=== PATIENT | female | born 1955 | race Asian ===

== ENCOUNTER 2017-02-15 09:55 | Outpatient (CLI) | payer OTHER ==
[2017-02-15 10:22] LABS: PLATELET COUNT 222 K/uL (152-353)
[2017-02-15 10:50] LABS: POTASSIUM 3.7 mmol/L (3.6-5.2)
== END 2017-02-15 10:55 | disposition home or self-care (01) ==
LOC: LABW 09:55
PROVIDERS: Family Medicine
DX: I10 Essential (primary) hypertension (principal); I48.91 Unspecified atrial fibrillation; G89.4 Chronic pain syndrome; F41.8 Other specified anxiety disorders; G47.33 Obstructive sleep apnea (adult) (pediatric); G47.09 Other insomnia; E55.9 Vitamin D deficiency, unspecified
CPT/HCPCS: 36415; 80053; 80061; 81000; 82043; 82306; 82570; 83735; 84439; 84443; 84550; 85027

== ENCOUNTER 2017-07-18 09:26 | Outpatient (CLI) | payer OTHER ==
[2017-07-18 10:17] LABS: PLATELET COUNT 208 K/uL (152-353)
[2017-07-18 10:36] LABS: POTASSIUM 3.5 mmol/L (3.6-5.2)
== END 2017-07-18 22:46 | disposition home or self-care (01) ==
LOC: LABW 09:26
PROVIDERS: Family Medicine
DX: K21.9 Gastro-esophageal reflux disease without esophagitis (principal); I10 Essential (primary) hypertension; E55.9 Vitamin D deficiency, unspecified; E78.00 Pure hypercholesterolemia, unspecified; R00.2 Palpitations; Z79.899 Other long term (current) drug therapy; Z51.81 Encounter for therapeutic drug level monitoring
CPT/HCPCS: 36415; 80053; 80061; 81000; 82306; 83036; 83735; 84439; 84443; 85027

== ENCOUNTER 2017-11-13 10:35 | Outpatient (CLI) | payer OTHER ==
[2017-11-13 11:20] LABS: PLATELET COUNT 214 K/uL (152-353)
[2017-11-13 12:33] LABS: POTASSIUM 3.7 mmol/L (3.6-5.2)
== END 2017-11-13 22:12 | disposition home or self-care (01) ==
LOC: LABW 10:35
PROVIDERS: Family Medicine
DX: R51 Headache (principal); D50.8 Other iron deficiency anemias; Z79.01 Long term (current) use of anticoagulants; Z51.81 Encounter for therapeutic drug level monitoring
CPT/HCPCS: 36415; 80053; 83540; 83550; 85027

== ENCOUNTER 2018-01-15 10:44 | Outpatient (CLI) | payer OTHER | END 2018-01-15 20:16 | disposition home or self-care (01) | LOC: LABW 10:44 | DX: Z11.59 Encounter for screening for other viral diseases (principal) | CPT/HCPCS: 36415; 80074 ==

== ENCOUNTER 2018-02-10 10:23 | Outpatient (CLI) | payer OTHER | END 2018-02-10 19:59 | disposition home or self-care (01) | LOC: MAMMO 10:23 | DX: Z12.31 Encounter for screening mammogram for malignant neoplasm of breast (principal) ==

== ENCOUNTER 2018-03-11 10:49 | Outpatient (CLI) | payer OTHER ==
[2018-03-11 11:02] LABS: PLATELET COUNT 213 K/uL (152-353)
== END 2018-03-11 21:06 | disposition home or self-care (01) ==
LOC: LABW 10:49
PROVIDERS: Family Medicine
DX: D50.9 Iron deficiency anemia, unspecified (principal)
CPT/HCPCS: 36415; 85027

== ENCOUNTER 2018-03-24 12:42 | Outpatient (CLI) | payer OTHER | END 2018-03-24 22:50 | disposition home or self-care (01) | LOC: MAMMO 12:42 | DX: R92.8 Other abnormal and inconclusive findings on diagnostic imaging of breast (principal) ==

== ENCOUNTER 2018-10-15 09:59 | Outpatient (CLI) | payer OTHER ==
[2018-10-15 10:33] LABS: PLATELET COUNT 168 K/uL (152-353)
[2018-10-15 10:48] LABS: POTASSIUM 3.5 mmol/L (3.6-5.2)
== END 2018-10-15 19:19 | disposition home or self-care (01) ==
LOC: LABW 09:59
PROVIDERS: Family Medicine
DX: I10 Essential (primary) hypertension (principal); E55.9 Vitamin D deficiency, unspecified; E78.00 Pure hypercholesterolemia, unspecified; E11.9 Type 2 diabetes mellitus without complications; Z79.01 Long term (current) use of anticoagulants; K21.9 Gastro-esophageal reflux disease without esophagitis; R82.998 Other abnormal findings in urine
CPT/HCPCS: 36415; 80053; 80061; 81000; 82306; 83036; 83735; 84439; 84443; 84550; 85027; 87088

== ENCOUNTER 2018-10-22 11:26 | Outpatient (CLI) | payer OTHER | END 2018-10-22 23:11 | disposition home or self-care (01) | LOC: LABW 11:26 | DX: D53.1 Other megaloblastic anemias, not elsewhere classified (principal) | CPT/HCPCS: 36415; 82607; 82746 ==

== ENCOUNTER 2018-10-29 08:53 | Outpatient (CLI) | payer OTHER | END 2018-10-29 23:41 | disposition home or self-care (01) | LOC: US 08:53 | DX: R74.8 Abnormal levels of other serum enzymes (principal) ==

== ENCOUNTER 2019-03-27 08:56 | Outpatient (CLI) | payer OTHER | END 2019-03-27 20:14 | disposition home or self-care (01) | LOC: MAMMO 08:56 | DX: Z12.31 Encounter for screening mammogram for malignant neoplasm of breast (principal); Z00.00 Encounter for general adult medical examination without abnormal findings ==

== ENCOUNTER 2020-03-21 10:57 | Observation (INO) | payer OTHER ==
[~2020-03-21] VITALS: Ht 152.4 cm; Wt 80.8 kg
[2020-03-21 12:00] VITALS: BP 159/76; TEMP 97.8
[2020-03-21 12:13] LABS: PLATELET COUNT 194 K/uL (152-353)
[2020-03-21 12:42] LABS: POTASSIUM 3.9 mmol/L (3.6-5.2); SODIUM 137 mmol/L (136-145)
[2020-03-21 15:22] VITALS: BP 171/81; TEMP 98.1; Ht 152.4 cm; Wt 80.8 kg
[2020-03-21] MEDS ORDERED: XARELTO15 MG PO (15:57)
[2020-03-21] MEDS ORDERED: HYDR-3182 PO (15:59)
[2020-03-21 16:00] VITALS: BP 137/72; TEMP 98.2
[2020-03-21] MEDS ORDERED: TRAMADOL HYDROC50 MG PO (16:01)
[2020-03-21] MEDS ORDERED: LIPITOR20 MG PO (16:01)
[2020-03-21] MEDS ORDERED: SOTALOL AF80 MG PO (16:03)
[2020-03-21] MEDS ORDERED: GRALISE600 MG PO (16:05)
[2020-03-21] MEDS ORDERED: LISI20TA11 PO (16:08)
[2020-03-21] MEDS ORDERED: OMEPRAZOLE40 MG PO (16:09)
[2020-03-21] MEDS ORDERED: VITAMIN D31000 UNIT PO (16:11)
[2020-03-21] MEDS ORDERED: VITAMIN B123000 MCG SL (16:12)
[2020-03-21] MEDS ORDERED: FOLIC ACID5 MG PO (16:13)
[2020-03-21 20:00] VITALS: BP 125/62; TEMP 98.6
[2020-03-22] VITALS: BP 117/51; TEMP 98.7
[2020-03-22 04:00] VITALS: BP 120/66; TEMP 98.1
[2020-03-22 08:00] VITALS: BP 121/62; TEMP 98.4
== END 2020-03-22 11:30 | disposition home or self-care (01) ==
LOC: MED/SURG 10:57
PROVIDERS: ADMIT Family Medicine; ATTEND Family Medicine
DX: R10.9 Unspecified abdominal pain (principal); R11.2 Nausea with vomiting, unspecified; E86.0 Dehydration; E11.9 Type 2 diabetes mellitus without complications; I10 Essential (primary) hypertension; I48.91 Unspecified atrial fibrillation; K52.89 Other specified noninfective gastroenteritis and colitis; K21.9 Gastro-esophageal reflux disease without esophagitis
CPT/HCPCS: 80053; 82150; 83690; 84443; 84484; 85027; 87635; 93005; 94760; 99220; G0378; G0379; J2405; J2550; J3490; U0003

== ENCOUNTER 2020-08-15 10:30 | Outpatient (CLI) | payer OTHER ==
[~2020-08-15 10:30] MED LIST: FOLIC ACID5 MG PO; GRALISE600 MG PO; HYDR-3182 PO; LIPITOR20 MG PO; LISI20TA11 PO; OMEPRAZOLE40 MG PO; SOTALOL AF80 MG PO; TRAMADOL HYDROC50 MG PO; VITAMIN B123000 MCG SL; VITAMIN D31000 UNIT PO; XARELTO15 MG PO
[2020-08-15 10:52] LABS: PLATELET COUNT 171 K/uL (152-353)
[2020-08-15 11:04] LABS: POTASSIUM 3.7 mmol/L (3.6-5.2)
== END 2020-08-15 19:32 | disposition home or self-care (01) ==
LOC: LABW 10:30
PROVIDERS: ATTEND Internal Medicine Endocrinology, Diabetes & Metabolism
DX: I10 Essential (primary) hypertension (principal); E78.49 Other hyperlipidemia; I25.10 Atherosclerotic heart disease of native coronary artery without angina pectoris; E88.81 Metabolic syndrome and other insulin resistance; Z79.899 Other long term (current) drug therapy; E53.8 Deficiency of other specified B group vitamins; E55.9 Vitamin D deficiency, unspecified
CPT/HCPCS: 36415; 80053; 80061; 81000; 82306; 82607; 83036; 85027

== ENCOUNTER 2020-12-22 10:20 | Outpatient (CLI) | payer OTHER | END 2020-12-22 19:10 | disposition home or self-care (01) | LOC: RAD 10:20 | PROVIDERS: ATTEND Family Medicine | DX: M25.561 Pain in right knee (principal) ==

== ENCOUNTER 2021-09-12 09:28 | Outpatient (CLI) | payer OTHER ==
[~2021-09-12 09:28] MED LIST changes: +ALBU90AE13 INH; +AMIT25TA22 PO; +FURO20TA67 PO; +K-TABS10 MEQ PO; +PANTOPRAZOLE 40MG TA PO
== END 2021-09-12 19:28 | disposition home or self-care (01) ==
LOC: CT 09:28
PROVIDERS: ATTEND Nurse Practitioner Family
DX: J84.89 Other specified interstitial pulmonary diseases (principal)

== ENCOUNTER 2022-03-06 11:39 | Outpatient (CLI) | payer OTHER | END 2022-03-06 20:13 | disposition home or self-care (01) | LOC: RAD 11:39 → LABW 11:39 → RAD 20:13 | PROVIDERS: ATTEND Family Medicine | DX: M25.511 Pain in right shoulder (principal) ==

== ENCOUNTER 2022-08-01 08:52 | Outpatient (CLI) | payer OTHER ==
[2022-08-01 09:22] LABS: PLATELET COUNT 213 K/uL (152-353)
[2022-08-01 09:33] LABS: POTASSIUM 4.1 mmol/L (3.6-5.2)
== END 2022-08-01 19:09 | disposition home or self-care (01) ==
LOC: LABW 08:52
PROVIDERS: ATTEND Family Medicine
DX: R04.0 Epistaxis (principal); I10 Essential (primary) hypertension; E11.9 Type 2 diabetes mellitus without complications; K21.9 Gastro-esophageal reflux disease without esophagitis; G89.4 Chronic pain syndrome; R31.9 Hematuria, unspecified; E55.9 Vitamin D deficiency, unspecified; N95.1 Menopausal and female climacteric states; Z79.899 Other long term (current) drug therapy
CPT/HCPCS: 36415; 80053; 80061; 81002; 82306; 83036; 83735; 84439; 84443; 84550; 85027

== ENCOUNTER 2022-08-06 10:03 | Outpatient (CLI) | payer OTHER | END 2022-08-06 18:58 | disposition home or self-care (01) | LOC: MAMMO 10:03 | PROVIDERS: ATTEND Family Medicine | DX: Z12.31 Encounter for screening mammogram for malignant neoplasm of breast (principal); N95.1 Menopausal and female climacteric states ==

== ENCOUNTER 2022-08-21 10:53 | Outpatient (CLI) | payer OTHER | END 2022-08-21 19:01 | disposition home or self-care (01) | LOC: RAD 10:53 | PROVIDERS: ATTEND Family Medicine | DX: Z13.820 Encounter for screening for osteoporosis (principal); N95.8 Other specified menopausal and perimenopausal disorders ==

== ENCOUNTER → 2022-09-07 | Outpatient (CLI) | payer OTHER | LOC: CT 10:00 | PROVIDERS: ATTEND Nurse Practitioner Family | DX: R91.8 Other nonspecific abnormal finding of lung field (principal) ==

== ENCOUNTER 2022-09-24 12:16 | Outpatient (CLI) | payer OTHER | END 2022-09-24 20:07 | disposition home or self-care (01) | LOC: LABW 12:16 | PROVIDERS: ATTEND Family Medicine | DX: E11.9 Type 2 diabetes mellitus without complications (principal) | CPT/HCPCS: 82043 ==